=== PATIENT | female | born 1965 | race American Indian/Alaskan Native ===

== ENCOUNTER 2016-10-15 20:54 | Emergency (ER) | payer OTHER, MEDICAID ==
[2016-10-15 22:01] VITALS: BP 134/83; TEMP 97.8
[2016-10-15 22:28] VITALS: BMI 65.6
[2016-10-15 23:02] LABS: ADD MANUAL DIFF? NO
[2016-10-15 23:13] LABS: ALKALINE PHOSPHATASE 105 U/L (38-133); ALT/SGPT 26 U/L (7-56); AST/SGOT 26 U/L (15-39); BILIRUBIN,TOTAL 0.8 mg/dL (0.2-1.3); BLOOD UREA NITROGEN 8 mg/dL (7-21); CALCIUM 9.9 mg/dL (8.4-10.5); CARBON DIOXIDE 27 mmol/L (21-33); CHLORIDE 102 mmol/L (98-107); GFR AFRICAN-AMERICAN > 60; GLUCOSE,RANDOM 125 mg/dL (70-110); POTASSIUM 3.8 mmol/L (3.6-5.0); SODIUM 139 mmol/L (132-148); TOTAL PROTEIN 8.3 g/dL (5.8-8.3)
[2016-10-15 23:16] LABS: BASO # 0.02 K/mm3 (0.0-2.0); BASO % 0.4 % (0.0-3.0); EOS # 0.1 (0.0-0.7); EOS % 2.2 % (1.5-5.0); GRAN # 1.88 (1.4-6.5); GRAN % 41.6 % (50.0-68.0); HEMATOCRIT 35.7 % (36.0-48.0); LYMPH # 1.9 (1.2-3.4); LYMPH % 42.3 % (22.0-35.0); MEAN CELL VOLUME 88.6 fL (80.0-105.0); MEAN CORPUSCULAR HGB CONC 36.1 g/dl (31.0-37.0); MEAN PLATELET VOLUME 9.1 fl (7.0-11.0); MONO # 0.6 (0.1-0.6); MONO % 13.5 % (1.0-6.0); PLATELET COUNT 183 10^3/uL (120.0-450.0); RED CELL DISTRIBUTION WIDTH 12.6 % (11.5-14.5); WHITE BLOOD COUNT 4.5 10^3/ul (4.5-11.0)
--- NOTE | 2016-10-16 00:18 | ED PDOC ---
Arrival/HPI - General Chief Complaint: Lower Extremity Problem/Injury Time Seen by Provider: 10/15/16 22:20 Historian: Patient - History of Present Illness Narrative History of Present Illness (Text): 10/16/16 00:15 [id number] with PMhx of diabetes and neuropathy present with complain of b/l leg pain and swelling since last night. States she noticed red discoloration of the leg. denies any previous history. denies SOB, recent travl, chest pain, fever, chills, trauma. Past Medical History - Provider Review Nursing Documentation Reviewed: Yes - Reproductive Menopause: Yes - Cardiac Hx Cardiac Disorders: No - Pulmonary Hx Asthma: Yes - Endocrine/Metabolic Hx Diabetes Mellitus Type 1: Yes - Musculoskeletal/Rheumatological Hx Arthritis: Yes - Psychiatric Hx Substance Use: No - Surgical History Hx Section: Yes - Anesthesia Hx Anesthesia: Yes Hx Anesthesia Reactions: No Hx Malignant Hyperthermia: No Family/Social History - Physician Review Nursing Documentation Reviewed: Yes Family/Social History: Unknown Family HX Smoking Status: Current Some Days Smoker Hx Alcohol Use: No Hx Substance Use: No Allergies/Home Meds Allergies/Adverse Reactions: Allergies No Known Allergies Allergy (Verified 10/15/16 22:01) Home Medications: Home Meds Medication Instructions Recorded Confirmed Albuterol HFA [Ventolin HFA 90 1 puff INH Q6 10/15/16 10/15/16 mcg/actuation (8 g)] Liraglutide [Victoza 3-Piyush] 1.8 mg SQ DAILY 10/15/16 10/15/16 MetFORMIN [glucOPHAGE] 1,000 mg PO BID 10/15/16 10/15/16 Review of Systems - Physician Review All systems were reviewed & negative as marked: Yes - Review of Systems Constitutional: Normal Eyes: Normal ENT: Normal Respiratory: Normal Cardiovascular: Normal Gastrointestinal: Normal Genitourinary Female: Normal Musculoskeletal: Arthralgias (B/L leg pain) Skin: Normal Neurological: Normal Endocrine: Normal Hemo/Lymphatic: Normal Psychiatric: Normal Physical Exam Vital Signs Reviewed: Yes Vital Signs Temp Pulse Resp BP Pulse Ox 10/15/16 21:57 97.8 F 81 20 134/83 97 Temperature: Afebrile Blood Pressure: Normal Pulse: Regular Respiratory Rate: Normal Appearance: Positive for: Well-Appearing, Non-Toxic, Comfortable Pain Distress: None Mental Status: Positive for: Alert and Oriented X 3 Finger Stick Blood Glucose: 122 - Systems Exam Head: Present: Atraumatic, Normocephalic Pupils: Present: PERRL Extroacular Muscles: Present: EOMI Conjunctiva: Present: Normal Mouth: Present: Moist Mucous Membranes Neck: Present: Normal Range of Motion Respiratory/Chest: Present: Clear to Auscultation, Good Air Exchange. No: Respiratory Distress, Accessory Muscle Use Cardiovascular: Present: Regular Rate and Rhythm, Normal S1, S2. No: Murmurs Abdomen: Present: Normal Bowel Sounds. No: Tenderness, Distention, Peritoneal Signs Back: Present: Normal Inspection Upper Extremity: Present: Normal Inspection. No: Cyanosis, Edema Lower Extremity: Present: CALF TENDERNESS (B/L), NORMAL PULSES, Normal ROM, Tenderness, Swelling (2+ nonpitting edema b/l), Erythema (On b/l distal lower leg), Neurovascularly Intact. No: Edema, Patrick's Sign, Deformity, Temperature Abnormalties Neurological: Present: GCS=15, CN II-XII Intact, Speech Normal Skin: Present: Warm, Dry, Normal Color. No: Rashes Psychiatric: Present: Alert, Oriented x 3, Normal Insight, Normal Concentration Medical Decision Making ED Course and Treatment: 10/16/16 00:18 Per US tech doppler US was negative for DVT b/l B/L tib /fib xray was negative Lab was unremarkable. Result was DW the pt. She was treated and DC home with Keflex. Referred to her PMD . Advised TRT ER for any worsening symptoms - Lab Interpretations Lab Results: 10/15/16 22:48 10/15/16 22:48 Lab Results 10/15/16 22:48: WBC 4.5, RBC 4.03, Hgb 12.9, Hct 35.7 L, MCV 88.6, MCH 32.0, MCHC 36.1, RDW 12.6, Plt Count 183, MPV 9.1, Gran % 41.6 L, Lymph % (Auto) 42.3 H, [place] % (Auto) 13.5 H, Eos % (Auto) 2.2, Baso % (Auto) 0.4, Gran # 1.88, Lymph # 1.9, [place] # 0.6, Eos # 0.1, Baso # 0.02, Sodium 139, Potassium 3.8, Chloride 102, Carbon Dioxide 27, Anion Gap 14, BUN 8, Creatinine 0.6, Est GFR ( Amer) > 60, Est GFR (Non-Af Amer) > 60, Random Glucose 125 H, Calcium 9.9, Total Bilirubin 0.8, AST 26, ALT 26, Alkaline Phosphatase 105, Total Protein 8.3, Albumin 4.2, Globulin 4.1, Albumin/Globulin Ratio 1.0 L - RAD Interpretation Radiology Orders: 10/15/16 22:28 TIBIA FIBULA LEFT [RAD] Stat TIBIA FIBULA RIGHT [RAD] Stat DUPLEX LOWER EXTRM VEIN BILAT [US] Stat - Medication Orders Current Medication Orders: Discontinued Medications Cephalexin Monohydrate (Keflex) 500 mg PO STAT STA PRN Reason: Protocol Stop: 10/16/16 00:08 Ketorolac Tromethamine (Toradol) 30 mg IVP STAT STA Stop: 10/16/16 00:08 Disposition/Present on Arrival - Present on Arrival Any Indicators Present on Arrival: No History of DVT/PE: No History of Uncontrolled Diabetes: No Urinary Catheter: No History of Decub. Ulcer: No History Surgical Site Infection Following: None - Disposition Have Diagnosis and Disposition been Completed?: Yes Diagnosis: Cellulitis, Pain of lower extremity Disposition: HOME/ ROUTINE Disposition Time: 12:20 Patient Plan: Discharge Condition: STABLE Discharge Instructions (ExitCare): Cellulitis (ED) Additional Instructions: Follow up with your doctor Return to ED for any new or worsening symptoms Prescriptions: Cephalexin [Keflex] 500 mg PO QID #40 capsule Naproxen [Naprosyn] 500 mg PO BID #20 tab
[2016-10-16 00:26] VITALS: PULSE 80; RESP 16; O2SAT 98
--- NOTE | 2016-10-16 10:29 | RAD ---
PROCEDURE: Radiographs of the right tibia and fibula. HISTORY: leg pain COMPARISON: None available. TECHNIQUE: Frontal and lateral views obtained. FINDINGS: BONES: No fracture or destructive lesion. JOINT SPACES: Unremarkable. OTHER FINDINGS: None. IMPRESSION: Unremarkable radiographs of the right tibia and fibula.
--- NOTE | 2016-10-16 10:30 | RAD ---
PROCEDURE: Radiographs of the left tibia and fibula. HISTORY: leg pain COMPARISON: None available. TECHNIQUE: Frontal and lateral views obtained. FINDINGS: BONES: No fracture or destructive lesion. JOINT SPACES: Unremarkable. OTHER FINDINGS: None. IMPRESSION: Unremarkable radiographs of the left tibia and fibula.
--- NOTE | 2016-10-16 11:56 | US ---
HISTORY: Leg pain and swelling. Evaluate for DVT PHYSICIAN(S): Aurelio Tsyon MD. TECHNIQUE: Duplex sonography and color-flow Doppler with graded compression were used to evaluate the deep venous systems of both lower extremities. The exam is limited by body habitus and edema FINDINGS: The visualized deep venous systems of both lower extremities are sonographically normal and compressible. Normal wave forms and augmentation are seen. There is no sonographic evidence for deep venous thrombosis in the visualized segments of both lower extremities. IMPRESSION: No sonographic evidence for deep venous thrombosis in the visualized segments of both lower extremities. Limited exam
== END 2016-10-16 00:30 | disposition home or self-care (01) ==
LOC: ED 20:54 → MERGE 20:54 → ED 10-16 00:30
DX: L03.116 Cellulitis of left lower limb (principal); L03.115 Cellulitis of right lower limb; M79.605 Pain in left leg; M79.604 Pain in right leg